=== PATIENT | male | born 1990 | race Caucasian/White ===

== ENCOUNTER 2019-06-19 13:52 | Emergency (ER) | payer OTHER, SELFPAY ==
[2019-06-19 13:57] VITALS: BP 128/79; PULSE 95; RESP 15; TEMP 37.2; O2SAT 93
--- NOTE | 2019-06-19 14:17 | W.ED.GENAD ---
Discharge Plan Disposition Patient Disposition: [facility] Condition: Stable Discharge Details Chief Complaint: SOB Clinical Impression: Foreign body in lung, Pneumonia Primary Care Provider: None,None ED Provider: Conchita Nelson Home Meds and New Rx's Prescriptions: No Action cetirizine 10 mg Tablet 10 mg PO DAILY PRNRF: 0 pantoprazole 40 mg Tablet,Delayed Release (Dr/Ec) 40 mg PO DAILY RF: 0 mirtazapine 15 mg Tablet 15 mg PO QHS RF: 0 simethicone 80 mg Tablet,Chewable 80 mg PO QHS PRNRF: 0 escitalopram oxalate 20 mg Tablet 20 mg PO DAILY RF: 0 buprenorphine HCl 8 mg Tablet, Sublingual 16 mg SUBLINGUAL DAILY RF: 0 Discharge Data Discharge Date/Time-TO BE ENTERED AT DEPARTURE: 06/19/19 17:19 Medical Decision Making <GEN Quinn - Last Filed: 06/21/19 08:05> Patient is a 28-year-old male, ex-smoker, with chief complaint of inhaled foreign body. Believes he inhaled a piece of the pen 5 days ago. Since that time his cough has progressively worsened. He reports is bringing up green green sputum. Feels short of breath, particular with cough. He has pointed pain on the right side of the chest with inspiration and coughing. On exam, patient is resting comfortably. Lungs are clear in all posada. He indicates mid right sternum is area of discomfort. Breathing comfortably with no signs of respiratory distress. Plan to obtain chest x-ray. However, I am concerned given the make-up ofthe pen that reviewing this on x-ray may be difficult. Review the chest x-ray. I am unable to visualize the foreign body but do see a large area of density in the right lower lobe. Feel he is appropriate at this time. CXR reviewed by radiologist: FINDINGS: Increased density at the right lung base suggesting a pleural effusion and probable consolidation which represent atelectasis or pneumonia. No additional consolidations. Pulmonary vasculature within normal limits. Left costophrenic angle sharp. IMPRESSION: Increased density at the right lung base as outlined above. Patient has received ceftriaxone and doxycycline. FINDINGS: Marked right lower lobe collapse with attenuation of the posterior right lower lobe bronchus the exact etiology of which is uncertain. No radiopaque foreign body. Possible tiny right pleural effusion. No significant adenopathy. No evidence of pneumothorax. IMPRESSION: Marked collapse of the right lower lobe. Followup with bronchoscopy may be helpful. Images have been placed to [facility]. Requested a consult for bronchoscopy. At the end of my shift, we are waiting to hear back from [facility]. Care can transition to Kaylee Redd PA-C. Patient has remained stable and comfortable. <GEN Saeed - Last Filed: 06/19/19 17:13> 1650 - Accepted the care of this 28-year-old patient for concern of possible foreign body and associated pneumonia after aspirating a pen cap 5 days ago. Please see previous providers H&P for details. Pulmonary doctor at [facility] called back to discuss case. He is unsure whether this patient will require either a flexible bronchoscopy or rigid bronchoscopy. He will speak with CT surgery and they will call back regarding appropriate placement of the patient at [facility]. 1710 -2 callback from [facility] investor relations coordinator who reports patient will be accepted to the emergency department. Accepting doctor is Dr. Mele Riggs. Patient will be transferred via corrections officers as patient has remained stable, requires no medications in route. This was discussed with corrections officers, the patient all who are agreeable to plan of care and feel comfortable with plan of care. HPI <GEN Quinn - Last Filed: 06/21/19 08:05> General Mode of arrival: ambulatory (with banking officer). Date/Time Provider Initiated Documentation: 06/19/19 14:17. Limitations to Documentation: no limitations. Information obtained by: patient and RN notes reviewed. HPI Narrative: Patient is a 28-year-old male, currently incarcerated, presenting today with chief complaint of cough, fever after inhaling foreign body 5 days ago. Patient reports that he was laying in bed, chewing on the back of a bic pen when a piece broke off and he accidentally inhaled it. He states that he immediately was coughing frantically, was seen by medical. At that time, chest x-ray was ordered but has not been obtained as of yet. He reports that the following day, the cough persisted and he began bringing up green sputum. States that he has had fever for the past few days. Patient was reported to be febrile when medical staff called in prior to his arrival. He has not received anything as of yet today for discomfort and fevers. He reports feeling short of breath with cough. Reports that he has discomfort to the right of his sternum, particular with cough. Related Data Home Medications Medication Instructions Recorded Confirmed buprenorphine HCl 16 mg SUBLINGUAL DAILY 06/19/19 06/19/19 cetirizine 10 mg PO DAILY PRN 06/19/19 06/19/19 escitalopram oxalate 20 mg PO DAILY 06/19/19 06/19/19 mirtazapine 15 mg PO QHS 06/19/19 06/19/19 pantoprazole 40 mg PO DAILY 06/19/19 06/19/19 simethicone 80 mg PO QHS PRN 06/19/19 06/19/19 Allergies Allergy/AdvReac Type Severity Reaction Status Date / Time No Known Allergies Allergy Unverified 06/19/19 14:05 General Stated Complaint: SOB CLARENCE: 3 Review of Systems <GEN Quinn - Last Filed: 06/21/19 08:05> Constitutional Constitutional: Reports as per HPI, Reports chills, Denies fatigue, Reports fever(s) and Denies headache(s) Eyes Eyes: Reports as per HPI, Denies eye discharge and Denies irritation ENT Ears, Nose, Mouth, and Throat: Reports as per HPI and Denies headache(s) Cardiovascular Cardiovascular: Reports as per HPI, Denies chest pain and Denies dyspnea Respiratory Respiratory: Reports as per HPI, Reports chest congestion, Reports cough, Denies hemoptysis, Denies dyspnea and Denies wheezing Gastrointestinal Gastrointestinal: Reports as per HPI, Denies abdominal pain, Denies change in bowel habits, Denies nausea and Denies vomiting Integumentary/Breasts Skin/Breast: Reports as per HPI and Denies rash Neurologic Neurologic: Reports as per HPI and Denies headache(s) Endocrine Endocrine: Denies fatigue Allergic/Immunologic Allergic/Immunologic: Denies wheezing PFSH <GEN Quinn Last Filed: 06/21/19 08:05> Social History Smoking/Tobacco Use Status: Former Tobacco Use Drug use: Current Sobriety Exam <GEN Quinn Last Filed: 06/21/19 08:05> Const General: cooperative, healthy appearing, comfortable, no acute distress, well developed and well groomed Nutritional Appearance: average body habitus and well nourished Orientation: alert and awake [facility] Head: normal to inspection, normocephalic and atraumatic Ears: hearing grossly normal bilaterally General nose exam: external nose normal Face and sinus: normal facial exam, sinuses nontender and face symmetric Mouth: oral mucosae normal, lip normal, tongue normal, oropharynx normal and moist mucous membranes Teeth and gingiva: dentition normal Throat: posterior oropharynx normal, tonsils normal and uvula midline Eyes General: appearance normal, both eyes and all related structures Neck Neck: normal visual inspection, full ROM, no lymphadenopathy and no meningeal signs Resp Effort & Inspection: normal respiratory effort, able to speak in complete sentences and no respiratory distress Auscultation: clear to auscultation bilaterally, diminished lung sounds on the left in the lower lung posada, no rales, no rhonchi and no wheezes Cardio Rate: regular rate Rhythm: regular rhythm Heart Sounds: S1 normal and S2 normal Skin General skin exam: no rashes or lesions noted Neuro General: alert and awake Cognition: normal cognition Speech: speech normal Gait: normal gait Psych Appearance: grossly normal and well kempt Mental Status: mental status grossly normal Speech and Movement: speech and movement normal Course <GEN Quinn Last Filed: 06/21/19 08:05> Vital Signs Vital signs: Vital Signs Temperature 37.2 C 06/19/19 13:57 Pulse 95 H 06/19/19 13:57 Respiratory Rate 15 06/19/19 13:57 Blood Pressure 128/79 06/19/19 13:57 Pulse Oximetry 93 L 06/19/19 13:57 Temperature 37.2 C 06/19/19 13:57 Temperature Source Tympanic 06/19/19 13:57 Pulse 95 H 06/19/19 13:57 Respiratory Rate 15 06/19/19 13:57 Respiratory Effort Non-Labored 06/19/19 14:04 Blood Pressure 128/79 06/19/19 13:57 Pulse Oximetry 93 L 06/19/19 13:57 Oxygen Delivery Method Room Air 06/19/19 13:57 Oxygen Flow Rate 0 06/19/19 13:57 Pain Level 5 06/19/19 13:57 Sign Out <GEN Quinn Last Filed: 06/21/19 08:05> Sign Out Data: Sign Out Comment: Patient has inhaled foreign body with collapse of the right lower lobe. Care transition to Kaylee Redd. Awaiting to hear back from [facility] regarding bronchoscopy. Last updated by Ruby Palmer PA at 06/19/19 16:16
[2019-06-19 14:20] VITALS: RESP 18
--- NOTE | 2019-06-19 14:39 | DI.RAD_ITS ---
EXAM: XR CHEST 2V PA LATERAL INDICATION: inhaled FB, now cough, fever. COMPARISON: No exams were available for comparison TECHNIQUE: 2D digital imaging was performed. FINDINGS: The heart size and pulmonary vasculature are within normal limits. There is a large area of increased density in the right lung base posteriorly, this is suspicious for a large area of consolidation and/or atelectasis. A right pleural effusion cannot be excluded. The left lung is clear. No left pleural effusion is seen. No pneumothorax is identified. The bones are intact. IMPRESSION: Large area of increased density in the right lung base posteriorly. This may represent atelectasis o r pneumonia. A right pleural effusion cannot be excluded.
--- NOTE | 2019-06-19 14:57 | DI.VRAD_ITS ---
PROCEDURE INFORMATION: Exam: XR Chest, 2 Views Exam date and time: 06/19/2019 2:42 PM Age: 28 years old Clinical history: Other: Inhaled fb, now cough, fever TECHNIQUE: Imaging protocol: XR of the chest Views: 2 views. COMPARISON: No relevant prior studies available. FINDINGS: Increased density at the right lung base suggesting a pleural effusion and probable consolidation which represent atelectasis or pneumonia. No additional consolidations. Pulmonary vasculature within normal limits. Left costophrenic angle sharp. IMPRESSION: Increased density at the right lung base as outlined above. Dictated and Authenticated by: Juan Villagran MD. Ordering:NAKIA Beltran MD
[2019-06-19 15:02] LABS: Abs Immature Grans 0.01 k/cumm (0.0-0.09); Absolute Basophil Count 0.02 k/cumm (0.0-0.2); Absolute Eosinophil Count 0.09 k/cumm (0.0-0.7); Absolute Lymphocyte Count 1.15 k/cumm (1.2-3.4); Absolute Monocyte Count 0.89 k/cumm (0.11-0.7); Absolute Neutrophil Count 5.68 k/cumm (1.2-6.7); Basophils % 0.3; Eosinophils % 1.1; HCT 35.4 % (40.0-50.0); HGB 12.2 g/dL (13.5-17.5); Immature Grans % 0.1; Lymphocytes % 14.7; Mean Corp. HGB Concentration 34.5 g/dL (32.0-36.0); Mean Corpuscular Hemoglobin 29.3 pg (27.0-33.0); Mean Corpuscular Volume 84.9 fL (80-95); Mean Platelet Volume 10.7 fL (8.0-11.0); Monocytes % 11.4; Neutrophils % 72.4; Platelet Count 174 x1000/uL (130-400); RBC 4.17 m/cumm (4.50-6.00); RBC Distribution Width 11.9 % (11.8-14.1); White Blood Cell Count 7.84 k/cumm (4.4-10.8)
[2019-06-19] MEDS: Doxycycline Hyclate 100 MG CAP PO (15:03)
[2019-06-19] MEDS: cefTRIAXone 1 GM/50 ML BAG IVPB (15:04)
[2019-06-19 15:14] LABS: ALT 25 U/L (16-63); AST 31 U/L (15-37); Albumin 3.5 g/dL (3.4-5.0); Alkaline Phosphatase 51 U/L (46-116); Anion Gap 7.7 mmol/L (3-11); BUN 11 mg/dL (7-18); Bilirubin, Total 0.5 mg/dL (0.2-1.0); CO2 28.3 mmol/L (21.0-32.0); CREATININE 1.09 mg/dL (0.70-1.30); Calcium 8.7 mg/dL (8.5-10.1); Chloride 102 mmol/L (98-107); Glucose 111 mg/dL (74-106); Potassium 3.8 mmol/L (3.5-5.1); Sodium 138 mmol/L (136-145); Total Protein 7.5 g/dL (6.4-8.2)
--- NOTE | 2019-06-19 15:18 | DI.CT_ITS ---
EXAM: CT CHEST WO CLINICAL HISTORY: inhaled FB TECHNIQUE: The exam was performed according to the usual protocol without contrast material. COMPARISON: XR CHEST 2V PA LATERAL from 06/19/2019 FINDINGS: There is soft tissue debris seen within the bronchus to the right lower lobe (series 3, image 306 and series 3, image 328). This is indeterminate but foreign bodies cannot be excluded. The tracheobronchial tree is otherwise unremarkable. There is near complete collapse of the right lower lobe. The lungs are otherwise clear. There may be a small right pleural effusion. No left pleural effusion is seen. No pneumothorax is identified. The heart size is within normal limits. No pericardial effusion is seen. No significant thoracic adenopathy is appreciated. Soft tissue in the anterior mediastinum likely reflects residual thymic tissue Mild degenerative changes are seen in the thoracic spine. The esophagus is unremarkable. IMPRESSION: 1. Near-complete collapse of the right lower lobe. 2. Soft tissue within the right lower lobe bronchus. This is indeterminate. This may represent secr etions. Bronchoscopy is recommended for further evaluation. 3. Possible small right pleural effusion.
--- NOTE | 2019-06-19 15:36 | DI.VRAD_ITS ---
PROCEDURE INFORMATION: Exam: CT Chest Without Contrast Exam date and time: 06/19/2019 2:50 PM Age: 28 years old Clinical history: Fever; Patient HX: Aspiration of fb TECHNIQUE: Imaging protocol: Computed tomography of the chest without contrast. COMPARISON: CR XR CHEST 2V PA LATERAL 06/19/2019 2:39 PM FINDINGS: Marked right lower lobe collapse with attenuation of the posterior right lower lobe bronchus the exact etiology of which is uncertain. No radiopaque foreign body. Possible tiny right pleural effusion. No significant adenopathy. No evidence of pneumothorax. IMPRESSION: Marked collapse of the right lower lobe. Followup with bronchoscopy may be helpful. Dictated and Authenticated by: Juan Villagran MD. Ordering:NAKIA Beltran MD
[2019-06-19 15:51] VITALS: BP 129/68; PULSE 91; TEMP 37.1; O2SAT 98
[2019-06-19] MEDS: Acetaminophen 500 MG TAB 1000 MG PO (17:08)
[2019-06-19 17:17] VITALS: BP 135/81; PULSE 80; RESP 16; TEMP 37.5; O2SAT 93
== END 2019-06-19 17:19 | disposition short-term general hospital (02) ==
PROVIDERS: Physician Assistant; Emergency Provider Physician Assistant
DX: T17.808A Unspecified foreign body in other parts of respiratory tract causing other injury, initial encounter (principal); J18.9 Pneumonia, unspecified organism
CPT/HCPCS: 36415; 71250; 80053; 96365; 99285; 71046; 85025; 99284; J0696